=== PATIENT | female | born 1975 | race Two or more races ===

== ENCOUNTER 2020-12-20 21:16 | Emergency (ER) | payer MEDICAID ==
[~2020-12-20] VITALS: Ht 160 cm; Wt 86.4 kg
[~2020-12-20 21:16] MED LIST: ACET-66 PO
[2020-12-20] MEDS ORDERED: ACETAMINOPHEN 325 MG TABLET PO ONE (22:30)
[2020-12-20 22:37] LABS: COVID AG,FIA SOURCE NASOPHARYNGEAL
[2020-12-20 23:00] VITALS: BP 114/79
[2020-12-20 23:13] LABS: INFLUENZA TYPE A NEGATIVE FOR TYPE A (NEGATIVE); INFLUENZA TYPE B NEGATIVE FOR TYPE B (NEGATIVE)
== END 2020-12-20 23:05 | disposition home or self-care (01) ==
LOC: EMS 21:20
DX: U07.1 COVID-19 (principal); J02.9 Acute pharyngitis, unspecified; R51.9 Headache, unspecified
CPT/HCPCS: 81025; 87426; 87804; 99283; U0003

== ENCOUNTER 2022-11-29 21:14 | Emergency (ER) | payer MEDICAID ==
[~2022-11-29] VITALS: Ht 160 cm; Wt 95.5 kg
[2022-11-29 21:29] LABS: COVID AG,FIA SOURCE NASAL SWAB
[2022-11-29 22:22] LABS: INFLUENZA TYPE A NEGATIVE FOR TYPE A (NEGATIVE); INFLUENZA TYPE B NEGATIVE FOR TYPE B (NEGATIVE)
[2022-11-29 23:07] VITALS: BP 140/80
== END 2022-11-30 01:00 | disposition left against medical advice (07) ==
LOC: EMS 21:14
DX: R09.81 Nasal congestion (principal); R05.9 Cough, unspecified; Z53.21 Procedure and treatment not carried out due to patient leaving prior to being seen by health care provider; Z20.822 Contact with and (suspected) exposure to COVID-19
CPT/HCPCS: 87804; 99281; Z7502